=== PATIENT | male | born 1960 | race African-American/Black ===

== ENCOUNTER 2016-04-30 18:09 | Emergency (ER) | payer MEDICAID ==
[~2016-04-30] VITALS: Ht 172.7 cm; Wt 72.6 kg
[2016-04-30 20:30] VITALS: BP 147/87
== END 2016-04-30 20:58 | disposition home or self-care (01) ==
LOC: ER 18:13
DX: S46.811A Strain of other muscles, fascia and tendons at shoulder and upper arm level, right arm, initial encounter (principal); S39.012A Strain of muscle, fascia and tendon of lower back, initial encounter; V49.49XA Driver injured in collision with other motor vehicles in traffic accident, initial encounter; Y93.89 Activity, other specified; Y99.8 Other external cause status; Y92.410 Unspecified street and highway as the place of occurrence of the external cause